=== PATIENT | female | born 1975 | race Caucasian/White ===

== ENCOUNTER 2016-11-08 17:41 | Emergency (ER) | payer OTHER ==
[~2016-11-08] VITALS: Ht 170.2 cm; Wt 90.7 kg
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
[2016-11-08] MEDS ORDERED: CYCLOBENZAPRINE10 M1 PO (18:37)
[2016-11-08] MEDS ORDERED: PROVENTIL HFA6.7 GM INH (18:38)
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
[2016-11-08] MEDS ORDERED: NAPROSYN500 M1 PO ×2 (19:57→19:58)
[2016-11-08] MEDS ORDERED: CYCLOBENZAPRINE5 M2 PO ×2 (19:57→19:58)
[2016-11-08 20:02] VITALS: BP 131/80
== END 2016-11-08 20:07 ==
LOC: ERH 17:41
DX: M54.2 Cervicalgia (principal)
CPT/HCPCS: 81025; 96372; J1885